=== PATIENT | male | born 1985 | race Hispanic/Latino ===

== ENCOUNTER 2025-03-23 15:22 | Emergency (ER) | payer OTHER, SELFPAY ==
[2025-03-23 15:36] VITALS: BP 157/107; PULSE 85; RESP 18; TEMP 36.5; O2SAT 96; BMI 32.1
--- NOTE | 2025-03-23 16:18 | ED_ITS ---
HPI - Back Pain/Injury <Karthik Redd PA-C - Last Filed: 03/23/25 17:05> General Chief Complaint: Back Pain/Injury Stated Complaint: Pain in legs and back Time Seen by Provider: 03/23/25 15:49 Source: patient History of Present Illness HPI Narrative: This is a 39-year-old male presents emergency department due to right-sided lower back pain radiating down his right lower extremity for the last 3 months. States that 10 years ago he had a microdiskectomy at his L4-S1 region which helped improve the chronic back pain he was experiencing. Three months ago the pain began to return. He was not recall any acute accidents or injuries that would affect him. [facility] surgeon who he was seen via telehealth who ordered a lumbar MRI which the patient has performed but has not spoken with the spine surgeon about the results. He states that the pain is very severe at times and improves with positioning. He denies any urinary bowel incontinence. Does state that it ?feels weird? around his testicles. Denies any significant weakness although he does have difficulty moving his lower extremities time due to the pain. Denies any fevers, nausea, vomiting, or any other concerning signs or symptoms. Related Data Previous Rx's ?Medication ?Instructions ?Recorded cyclobenzaprine 10 mg tablet 10 mg PO TID PRN muscle s pasm #30 03/23/25 tabs gabapentin 600 mg tablet 600 mg PO TID #30 tabs 03/23 methylprednisolone 4 mg tablets in See Rx Instructions PO .COMPLEX 03/23/25 a dose pack (Medrol (Glao)) #21 ea Allergies Allergy/AdvReac Type Severity Reaction Status Date / Time sumatriptan AdvReac Severe Hallucinati Verified 03/23/25 15:37 ng Review of Systems <Karthik Redd PA-C - Last Filed: 03/23/25 17:05> Review of Systems Narrative: GENERAL: Denies chills, fatigue, malaise, fever, sweats. HEENT: Denies sinus pain, ear pain, sore throat, difficulty swallowing, dizziness. RESPIRATORY: Denies dyspnea, cough, wheezing, hemoptysis, sputum. CARDIOVASCULAR: Denies chest pain, palpitations, orthopnea, edema, GASTROINTESTINAL: Denies nausea, vomiting, abdominal pain, diarrhea, constipation, melena. : Denies dysuria, frequency, incontinence, hematuria, urinary retention. MUSCULOSKELETAL: Reports lower back pain as well as right lower extremity pain SKIN: Denies rash, skin lesions, or other NEUROLOGIC: Denies weakness, headache, numbness, change in speech, confusion, seizures, incoordination. PSYCHIATRIC: No concerning psychosocial issues. 12 point review of systems is negative except for those stated above Patient History <Karthik Redd PA-C - Last Filed: 03/23/25 17:05> Social History Smoking Status: Never smoker Smoking Status: Never smoker Exam <Karthik Redd PA-C - Last Filed: 03/23/25 17:05> Narrative Exam Narrative: GENERAL: Well-developed patient, in mild distress. HEAD: Atraumatic. Normocephalic. EYES: Pupils equal round and reactive. Extraocular motions intact. No scleral icterus. No injection or drainage. ENT: Nose without bleeding, purulent drainage. Throat without erythema, tonsillar hypertrophy or exudate. Airway patent. NECK: Trachea midline. Non tender EXTREMITIES: No edema or joint tenderness. No significant weakness noted on exam although somewhat limited secondary to pain. NEURO: AOx3. SKIN: No rash or erythema of visible areas Back: Right-sided tenderness to palpation Initial Vital Signs Initial Vital Signs: Vital Signs Temperature 97.7 F 03/23/25 15:36 Pulse Rate 85 03/23/25 15:36 Respiratory Rate 18 03/23/25 15:36 Blood Pressure 157/107 H 03/23/25 15:36 Pulse Oximetry 96 03/23/25 15:36 Oxygen Delivery Method Room Air 03/23/25 15:36 <Mirian Tate MD - Last Filed: 03/24/25 08:29> Initial Vital Signs Initial Vital Signs: Vital Signs Temperature 97.7 F 03/23/25 15:36 Pulse Rate 85 03/23/25 15:36 Respiratory Rate 18 03/23/25 15:36 Blood Pressure 157/107 H 03/23/25 15:36 Pulse Oximetry 96 03/23/25 15:36 Oxygen Delivery Method Room Air 03/23/25 15:36 Course <Karthik Redd PA-C - Last Filed: 03/23/25 17:05> Orders Ordered: Discontinued Medications Ketorolac Tromethamine (Ketorolac 30 Mg/Ml Vial) 15 mg IM NOW ONE Stop: 03/23/25 16:45 Last Admin: 03/23/25 16:53 Dose: 15 mg Documented By: RB Vital Signs Vital signs: Vital Signs - 8 hr 03/23/25 15:36 Temperature 97.7 F Pulse Rate 85 Respiratory Rate 18 Blood Pressure 157/107 H Pulse Oximetry 96 Oxygen Delivery Method Room Air <Mirian Tate MD - Last Filed: 03/24/25 08:29> Orders Ordered: Discontinued Medications Ketorolac Tromethamine (Ketorolac 30 Mg/Ml Vial) 15 mg IM NOW ONE Stop: 03/23/25 16:45 Last Admin: 03/23/25 16:53 Dose: 15 mg Documented By: RB Vital Signs Vital signs: Vital Signs - 8 hr 03/23/25 15:36 Temperature 97.7 F Pulse Rate 85 Respiratory Rate 18 Blood Pressure 157/107 H Pulse Oximetry 96 Oxygen Delivery Method Room Air MDM - Back Pain/Injury <Karthik Redd PA-C - Last Filed: 03/23/25 17:05> MDM Narrative Medical decision making narrative: ED course: 39-year-old male with a history of chronic lower back pain after diskectomy 10 years ago presenting to the emergency department due to lower back pain with right lower extremity radiculopathy. Did state a statement regarding his testicles feeling weird? although denied any urinary or bowel incontinence. Patient very recently had an MRI ordered by spine surgeon which showed ?L5-S1 spondylosis with prior right hemilaminotomy and microdiskectomy. No definite recurrent disc herniation. Ventral epidural scar tissue surrounding the right S1 nerve root. No evidence of high-grade canal or foraminal stenosis.?. Based on these results did not suspect need for emergent spine surgery. Patient has not established spine surgeon and he will follow up with him regarding these results for possible elective surgery. Patient denies any fevers or any other infectious symptoms. We will have him follow up with his spine surgeon for definitive management. Patient somewhat frustrated with the pain control he has been being given and requested Dilaudid multiple times. Discussed alternative pain management options which we will prescribe for him. CC: Back pain Complicating co-morbidities: None Data collected from: Previous notes Medical records reviewed: Patient was not been to this emergency department in the past. Differential considered, but not limited to: Spinal cord injury, fracture, spinal stenosis Exam documented above, pertinent findings include: No significant weakness noted on exam Lab Test results independently reviewed as above. Pertinent findings: None obtained Imaging studies independently reviewed: As above Scores Used: None MIPS Elements: None Consultations: None Treatments: IM Toradol Re-evaluations: None Discussion: Discussed plan with the patient was comfortable with the plan Diagnosis: Lumbar spondylosis Disposition: see below, along with detailed discharge instructions that have been reviewed with patient as well as indications for ED re-evaluation and additional outpatient follow up Discharge Plan Departure Patient Disposition: Home Clinical Impression: Acute back pain with sciatica Activity Restrictions/Additional Instructions: Thank you for coming to the [facility] Emergency Department today. Your lumbar MRI results showed no need for emergent surgery. I do recommend he follow up with a spine surgeon to further discuss possible surgery in the future or alternate ways to help with the pain. You may take a 1000 mg of Tylenol every 8 hours as well as 800 mg of ibuprofen every 8 hours. Please also use the lidocaine patches you have been prescribed. We have also increased her gabapentin as well as added a muscle relaxants and steroid pack to help with the pain. Please take as prescribed. Please be careful as the muscle relaxants may make you feel a bit ?woozy? so please do not take before driving or operating machinery. I recommend you continue to call your spine surgeon to arrange for a sooner appointment to discuss your results and further management. I sent your medication to [facility] in [place]. Please return to the emergency department if you develop any urinary bowel incontinence, or any other concerning signs or symptoms. I hope you feel better soon. Please follow up with your primary care provider within a week if your symptoms continue. If you do not have a primary care provider please contact the [facility] Resource line at [phone]. They will ask some questions about your medical history and help you get set up with a provider in the community. Prescriptions: New gabapentin 600 mg tablet 600 mg PO TID Qty: 30 0RF cyclobenzaprine 10 mg tablet 10 mg PO TID PRN (Reason: muscle spasm) Qty: 30 0RF methylprednisolone [Medrol (Galo)] 4 mg tablets,dose pack See Rx Instructions .ROUTE .COMPLEX Qty: 21 0RF Rx Instructions: for 6 days Stand Alone Forms: Patient Portal/API ED Sign-out <Mirian L Laursen, MD - Last Filed: 03/24/25 08:29> Cosign ED Attending Cosignature Attestation: I was immediately available in the department for consultation throughout this patient's visit. Mirian Tate MD
[2025-03-23] MEDS: KETOROLAC 30 MG/ML VIAL 15 MG IM (16:53)
[2025-03-23 17:18] VITALS: BP 138/70; PULSE 79; RESP 18; TEMP 36.8; O2SAT 97
== END 2025-03-23 17:19 | disposition home or self-care (01) ==
PROVIDERS: Emergency Provider Physician Assistant Medical
DX: M54.41 Lumbago with sciatica, right side (principal)
CPT/HCPCS: 96372; 99283; 99284; J1885